=== PATIENT | male | born 1955 | race Caucasian/White ===

== ENCOUNTER 2017-02-09 14:12 | Emergency (ER) | payer OTHER ==
[~2017-02-09] VITALS: Ht 170.2 cm; Wt 91.0 kg
[~2017-02-09 14:12] MED LIST: BENT20TA PO; RANI150 PO; Z.0.NO CURRENT MEDS
[2017-02-09 14:13] VITALS: BP 198/92; PULSE 76; RESP 18; TEMP 98.4; O2SAT 99
[2017-02-09] MEDS ORDERED: TETANUS/DIPHTHERIA TOXOID ADULT 0.5 ML VIAL IM ONE (17:00)
--- NOTE | 2017-02-09 17:48 | RADRPT ---
EXAM DATE/TIME: 02/09/2017 17:21 [place] COMPARISON: No previous studies available for comparison. INDICATIONS : Laceration to 1st digit. MEDICAL HISTORY : None. SURGICAL HISTORY : None. ENCOUNTER: Initial ACUITY: 1 day PAIN SCORE: 10/10 LOCATION: Left 1st Digit. FINDINGS: The bone density is normal and joint space widths are intact. A comminuted fracture of the tuft of th e first digit distal phalanx identified with overlying soft tissue injury. CONCLUSION: There is a comminuted fracture of the first digit distal phalangeal tuft with overlying soft tissue i njury. Mike Doll MD on February 09, 2017 at 17:45 Board Certified Radiologist. This report was verified electronically.
--- NOTE | 2017-02-09 17:53 | PD ---
HPI Chief Complaint: Laceration/Skin Injury Time Seen by Provider: 16:55 Travel History International Travel<30 days: No Contact w/Intl Traveler<30days: No Traveled to known affect area: No History of Present Illness HPI 61-year-old male here for evaluation of left thumb laceration. The patient reports that a table saw just barely touched his left thumb yesterday at around 3:00 PM. He was seen at an urgent care facility today where he had an x-ray performed and was told that he has a fracture in his thumb. He states that the pain initially wasn't that bad, however has significantly worsened today. He reports washing the wound out several times with hydrogen peroxide yesterday. Pain is moderate to severe, constant, worse with movement and palpation. He has a numbness sensation in the left thumb. PFSH Past Medical History Kidney Stones: Yes Social History Alcohol Use: No Tobacco Use: No Substance Use: No Allergies-Medications (Allergen,Severity, Reaction): Coded Allergies: No Known Allergies (Unverified , 03/23/12) Reported Meds & Prescriptions Reported Meds & Active Scripts Active Zantac 150 Mg Tab (Ranitidine HCl) 150 Mg Tab 150 Mg PO BID 14 Days Bentyl (Dicyclomine HCl) 20 Mg Tab 20 Mg PO TID Reported No Current Meds (Miscellaneous Medication) Misc Review of Systems Except as stated in HPI: all other systems reviewed are Neg Physical Exam Narrative GENERAL: Well-developed, well-nourished, comfortable, no apparent distress. SKIN: Left thumb with distal laceration that goes through the distal nail as well as the volar aspect of the thumb. This laceration is moderate depth, no active bleeding, no visible contaminants. Normal capillary refill in the left thumb area normal range of motion in flexion and extension of the left thumb. Normal sensation in the thumb. No other lacerations. No surrounding warmth or erythema. No purulent drainage. CARDIOVASCULAR: Regular rate and rhythm. RESPIRATORY: No accessory muscle use. MUSCULOSKELETAL: Skin exam as above. PSYCHIATRIC: Appropriate mood and affect; insight and judgment normal. Data Data Last Documented VS Vital Signs Date Time Temp Pulse Resp B/P (MAP) Pulse Ox O2 Delivery O2 Flow Rate FiO2 02/09/17 17:11 16 02/09/17 14:13 98.4 76 198/92 (127) 99 Room Air Orders Orders Tetanus/Diphtheria Tox Adult (Tetanus/Di (02/09/17 17:00) Finger ([id number]) (02/09/17 ) MDM Medical Decision Making Medical Screen Exam Complete: Yes Emergency Medical Condition: Yes Differential Diagnosis Left thumb laceration, tuft fracture Narrative Course Left thumb x-ray: Comminuted fracture of the first digit distal phalanx tuft with overlying soft tissue injury. Case discussed with on-call hand surgeon Dr. Wong. Because the wound occurred over 24 hours ago, she does not recommend closing the wound. Recommends starting the patient on oral antibiotics and having the wound heal by secondary intent. Tetanus updated. Antibody ointment and dressing applied to wound. Thumb splint also applied. Patient made aware of all findings and plan. He was advised to follow-up with hand surgeon Dr. Wong in 3 days. He was informed on when to return to the emergency department. He verbalizes understanding and agreement with plan. Diagnosis Primary Impression: Open fracture of tuft of distal phalanx of left thumb Referrals: Shey Wong MD 3 days Hand Surgeon Additional Instructions: Follow-up with hand surgeon Dr. Wong in 3 days. Take antibiotics as prescribed. Keep wound clean. Return to the emergency department for worsening symptoms or any other concerns as discussed. Scripts Hydrocodone-Acetaminophen (Lortab) 5-325 Mg Tab 1 TAB PO Q6H Y for PAIN, #15 TAB 0 Refills Prov: Joe Mcgee MD 02/09/17 Cephalexin (Keflex) 500 Mg Cap 500 MG PO Q8H for Infection, #30 CAP 0 Refills Prov: Joe Mcgee MD 02/09/17 Disposition: 01 DISCHARGE HOME Condition: Stable Joe Mcgee MD Feb 09, 2017 17:53
[2017-02-09] MEDS ORDERED: CEPH-460 PO (18:18)
[2017-02-09] MEDS ORDERED: HYDR-3533 PO (18:18)
[2017-02-09] MEDS ORDERED: CEPHALEXIN MONOHYDRATE 500 MG CAP PO ONE (18:30)
== END 2017-02-09 18:50 | disposition home or self-care (01) ==
LOC: NEPD 14:12
DX: S62.522B Displaced fracture of distal phalanx of left thumb, initial encounter for open fracture (principal); W27.0XXA Contact with workbench tool, initial encounter; Z23 Encounter for immunization
CPT/HCPCS: 73140; 90471; 90714

== ENCOUNTER 2017-02-16 15:28 | Emergency (ER) | payer OTHER ==
[~2017-02-16] VITALS: Ht 170.2 cm; Wt 90.0 kg
[~2017-02-16 15:28] MED LIST changes: +CEPH-460 PO; +HYDR-3533 PO
[2017-02-16 15:32] VITALS: BP 168/96; PULSE 83; RESP 15; TEMP 98.2; O2SAT 96
[2017-02-16] MEDS ORDERED: DOXY100C PO (17:06)
--- NOTE | 2017-02-16 18:24 | PD ---
HPI Chief Complaint: Skin Problem Time Seen by Provider: 16:45 Travel History International Travel<30 days: No Contact w/Intl Traveler<30days: No Traveled to known affect area: No History of Present Illness HPI This patient came back for reevaluation of his left thumb injury. He was seen here several days ago after he suffered a wound. He had x-ray showing a tuft fracture and had a small laceration. The ER physician consulted with a hand surgeon and it was determined they would let it heal by secondary intent and he was supposed to follow up with a hand surgeon in 3 days. He says that he called the office of the hand surgeon Dr. Wong but was denied appointment because they didn't accept his insurance. So he came back to the emergency room to have it reevaluated. No new injury. Denies fever. Severity is mild to moderate. PFSH Past Medical History Kidney Stones: Yes Social History Alcohol Use: No Tobacco Use: No Substance Use: No Allergies-Medications (Allergen,Severity, Reaction): Coded Allergies: No Known Allergies (Unverified Adverse Reaction, Unknown, 02/16/17) Reported Meds & Prescriptions Reported Meds & Active Scripts Active Keflex (Cephalexin) 500 Mg Cap 500 Mg PO Q8H Review of Systems General / Constitutional: No: Fever HENT: No: Headaches Cardiovascular: No: Chest Pain or Discomfort Respiratory: No: Cough Physical Exam Narrative SKIN: Focused skin assessment reveals no rash or ulcers. Skin is warm and dry. Palpation shows no induration or nodules. Psych: Normal mood and affect. Normal insight and judgment. Left thumb: There is a healing wound at the tip. Good scabbed over. I don't see any sign of active infection. There is no drainage or erythema. Good IP joint flexion and extension Data Data Last Documented VS Vital Signs Date Time Temp Pulse Resp B/P (MAP) Pulse Ox O2 Delivery O2 Flow Rate FiO2 02/16/17 15:32 98.2 83 15 168/96 (120) 96 MDM Medical Decision Making Medical Screen Exam Complete: Yes Emergency Medical Condition: Yes Medical Record Reviewed: Yes Differential Diagnosis Healing wound, infection, dehiscence Narrative Course I have reviewed the patient's electronic medical record. I reviewed the ER visit from a few days ago Patient is concerned about infection and wants more anabiotic's. He is running out of his Keflex. I advised him to finish that prescription but he did write him a week of doxycycline Diagnosis Primary Impression: Thumb fracture Qualified Codes: S62.525D - Nondisplaced fracture of distal phalanx of left thumb, subsequent encounter for fracture with routine healing Additional Impression: Encounter for wound re-check Additional Instructions: The patient was advised to follow up with their physician and return if they worsen. Med/Other Pt SpecificInfo: Other Disposition: 01 DISCHARGE HOME Condition: Stable Yang Jovel MD Feb 16, 2017 18:24
== END 2017-02-16 18:53 | disposition home or self-care (01) ==
LOC: NEPE 15:28
DX: S62.525A Nondisplaced fracture of distal phalanx of left thumb, initial encounter for closed fracture (principal)
CPT/HCPCS: 99281